=== PATIENT | male | born 1985 | race Caucasian/White ===

== ENCOUNTER 2017-12-08 18:00 | Inpatient (IN) | payer OTHER ==
[2017-12-08 18:42] VITALS: BMI 34.7
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
[2017-12-08] MEDS ORDERED: ACETAMINOPHEN 325 MG TABLET (FP) PO PRN (21:28)
[2017-12-08] MEDS ORDERED: NICOTINE POLACRILEX 2 MG GUM BUC PRN (21:28)
[2017-12-08] MEDS ORDERED: MAGNESIUM HYDROX 2400MG/30ML ORAL SUSPENSION 30 ML CUP PO PRN (21:28)
[2017-12-08] MEDS ORDERED: IBUPROFEN 400 MG TABLET (FP) PO PRN (21:28)
[2017-12-08] MEDS ORDERED: guaiFENesin/D-METHORPHAN HB 10 ML UNIT-DOSE CUPS PO PRN (21:28)
[2017-12-08] MEDS ORDERED: P-EPHED 60MG/TRIPROLIDI 2.5MG TABLET PO PRN (21:28)
[2017-12-08] MEDS ORDERED: LOPERAMIDE HCL 2 MG CAPSULE PO PRN (21:28)
[2017-12-08] MEDS ORDERED: MAG HYDROX/AL HYDROX/SIMETH 30 ML UNIT-DOSE CUP PO PRN (21:28)
[2017-12-08] MEDS ORDERED: MAGNESIUM CITRATE 300 ML BOTTLE PO PRN (21:28)
[2017-12-08] MEDS ORDERED: MENTHOL/PHENOL 1 EACH UD MM PRN (21:28)
[2017-12-08] MEDS: GABAPENTIN 300 MG CAPSULE (FP) PO SCH (23:40)
[2017-12-08] MEDS: THIAMINE HCL 100 MG TABLET (FP) PO SCH (23:40)
[2017-12-08] MEDS ORDERED: TUBERCULIN PPD 5 TU/0.1ML VIAL ID ONE (23:56)
[2017-12-08] MEDS: QUEtiapine FUMARATE 400 MG TABLET PO SCH (23:58)
[2017-12-09] MEDS ORDERED: TUBERCULIN PPD 5 TU/0.1ML VIAL ID ONE (00:05)
[2017-12-09 03:55] LABS: URINE APPEARANCE CLEAR; URINE BILIRUBIN NEGATIVE (NEGATIVE); URINE BLOOD NEGATIVE (NEGATIVE); URINE COLOR STRAW; URINE GLUCOSE (UA) NEGATIVE (NEGATIVE); URINE KETONE NEGATIVE (NEGATIVE); URINE LEUK ESTERASE NEGATIVE (NEGATIVE); URINE NITRITE NEGATIVE (NEGATIVE); URINE PROTEIN NEGATIVE (NEGATIVE); URINE UROBILINOGEN NEGATIVE mg/dL (0.2-1.0)
[2017-12-09] MEDS: NICOTINE 14 MG/24 HOURS TOPICAL PATCH TD SCH (09:48)
[2017-12-09] MEDS: GABAPENTIN 300 MG CAPSULE (FP) PO SCH ×2 (09:48→21:12)
[2017-12-09] MEDS: HYDROCHLOROTHIAZIDE 25 MG TABLET (FP) PO SCH (09:48)
[2017-12-09] MEDS: PRENATAL VITAMINS W/ FOLIC ACID TABLET (FP) PO SCH (09:48)
[2017-12-09] MEDS: hydrOXYzine PAMOATE 50 MG CAPSULE (FP) PO PRN (09:49)
[2017-12-09 10:21] LABS: HEMATOCRIT 43.1 % (35.4-49); HEMOGLOBIN 13.7 GM/dL (11.7-16.9); MCH 27.3 pg (25.7-33.7); MCHC 31.8 g/dl (32.0-35.9); MEAN CELL VOLUME 85.8 fl (80-96); MEAN PLT VOLUME 9.3 fl (7.5-11.1); PLATELET COUNT 223 K/MM3 (134-434); RBC 5.02 M/mm3 (4.00-5.60); RDW 15.1 % (11.9-15.9); WHITE BLOOD COUNT 8.8 K/mm3 (4.0-10.0)
--- NOTE | 2017-12-09 10:29 | EKG ---
Test Reason : Blood Pressure : / mmHG Vent. Rate : 076 BPM Atrial Rate : 076 BPM P-R Int : 142 ms QRS Dur : 082 ms QT Int : 398 ms P-R-T Axes : 043 006 022 degrees QTc Int : 447 ms NORMAL SINUS RHYTHM MODERATE VOLTAGE CRITERIA FOR LVH, MAY BE NORMAL VARIANT BORDERLINE ECG NO PREVIOUS ECGS AVAILABLE Confirmed by ZANE HERNANDEZ, BRADY ([id number]) on 12/09/2017 10:29:34 AM Referred By: Confirmed By:BRADY DEGROOT MD
[2017-12-09 10:32] LABS: CHLORIDE 100 mmol/L (98-107); POTASSIUM 3.7 mmol/L (3.5-5.1); SODIUM 136 mmol/L (136-145)
[2017-12-09 10:45] LABS: ALBUMIN 3.8 g/dl (3.4-5.0); ALK PHOS 81 U/L (45-117); ANION GAP 7 (8-16); BILIRUBIN,TOTAL 0.6 mg/dL (0.2-1.0); BLOOD UREA NITROGEN 11 mg/dL (7-18); CALCIUM 8.8 mg/dL (8.5-10.1); CO2 29 mmol/L (21-32); CREATININE 1.2 mg/dL (0.7-1.3); GLUCOSE,RANDOM 90 mg/dL (74-106); SGOT/AST 11 U/L (15-37); SGPT/ALT 29 U/L (12-78); TOT PROT 8.2 g/dl (6.4-8.2)
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
[2017-12-09] MEDS: LITHIUM CARBONATE 300 MG CAPSULE (FP) PO SCH ×2 (11:52→21:12)
[2017-12-09] MEDS: OLANZapine 10 MG TABLET PO SCH (21:12)
[2017-12-09] MEDS: QUEtiapine FUMARATE 400 MG TABLET PO SCH (21:12)
[2017-12-09] MEDS: THIAMINE HCL 100 MG TABLET (FP) PO SCH (21:12)
[2017-12-10] MEDS: HYDROCHLOROTHIAZIDE 25 MG TABLET (FP) PO SCH (09:52)
[2017-12-10] MEDS: PRENATAL VITAMINS W/ FOLIC ACID TABLET (FP) PO SCH (09:52)
[2017-12-10] MEDS: GABAPENTIN 300 MG CAPSULE (FP) PO SCH ×2 (09:52→21:11)
[2017-12-10] MEDS: LITHIUM CARBONATE 300 MG CAPSULE (FP) PO SCH ×2 (09:52→21:11)
[2017-12-10] MEDS: NICOTINE 14 MG/24 HOURS TOPICAL PATCH TD SCH (09:52)
[2017-12-10] MEDS: DULoxetine HCL 20 MG CAPSULE.DR (FP) PO SCH (09:52)
[2017-12-10] MEDS: QUEtiapine FUMARATE 400 MG TABLET PO SCH (21:11)
[2017-12-10] MEDS: THIAMINE HCL 100 MG TABLET (FP) PO SCH (21:11)
[2017-12-10] MEDS: OLANZapine 10 MG TABLET PO SCH (21:11)
[2017-12-11] MEDS: GABAPENTIN 300 MG CAPSULE (FP) PO SCH ×2 (09:47→21:09)
[2017-12-11] MEDS: LITHIUM CARBONATE 300 MG CAPSULE (FP) PO SCH ×2 (09:47→21:09)
[2017-12-11] MEDS: HYDROCHLOROTHIAZIDE 25 MG TABLET (FP) PO SCH (09:47)
[2017-12-11] MEDS: PRENATAL VITAMINS W/ FOLIC ACID TABLET (FP) PO SCH (09:47)
[2017-12-11] MEDS: DULoxetine HCL 20 MG CAPSULE.DR (FP) PO SCH (09:47)
[2017-12-11] MEDS: NICOTINE 14 MG/24 HOURS TOPICAL PATCH TD SCH (09:47)
[2017-12-11] MEDS: hydrOXYzine PAMOATE 50 MG CAPSULE (FP) PO PRN (14:16)
[2017-12-11] MEDS: OLANZapine 10 MG TABLET PO SCH (21:09)
[2017-12-11] MEDS: THIAMINE HCL 100 MG TABLET (FP) PO SCH (21:09)
[2017-12-11] MEDS: QUEtiapine FUMARATE 400 MG TABLET PO SCH (21:09)
[2017-12-12] MEDS: GABAPENTIN 300 MG CAPSULE (FP) PO SCH ×2 (09:45→21:07)
[2017-12-12] MEDS: PRENATAL VITAMINS W/ FOLIC ACID TABLET (FP) PO SCH (09:45)
[2017-12-12] MEDS: DULoxetine HCL 20 MG CAPSULE.DR (FP) PO SCH (09:45)
[2017-12-12] MEDS: LITHIUM CARBONATE 300 MG CAPSULE (FP) PO SCH ×2 (09:45→21:07)
[2017-12-12] MEDS: NICOTINE 14 MG/24 HOURS TOPICAL PATCH TD SCH (09:45)
[2017-12-12] MEDS: HYDROCHLOROTHIAZIDE 25 MG TABLET (FP) PO SCH (09:45)
[2017-12-12] MEDS: hydrOXYzine PAMOATE 50 MG CAPSULE (FP) PO PRN (14:07)
[2017-12-12] MEDS: THIAMINE HCL 100 MG TABLET (FP) PO SCH (21:07)
[2017-12-12] MEDS: OLANZapine 10 MG TABLET PO SCH (21:07)
[2017-12-12] MEDS: QUEtiapine FUMARATE 400 MG TABLET PO SCH (21:07)
[2017-12-13] MEDS: PRENATAL VITAMINS W/ FOLIC ACID TABLET (FP) PO SCH (10:02)
[2017-12-13] MEDS: GABAPENTIN 300 MG CAPSULE (FP) PO SCH ×2 (10:02→21:07)
[2017-12-13] MEDS: DULoxetine HCL 20 MG CAPSULE.DR (FP) PO SCH (10:03)
[2017-12-13] MEDS: NICOTINE 14 MG/24 HOURS TOPICAL PATCH TD SCH (10:05)
[2017-12-13] MEDS: HYDROCHLOROTHIAZIDE 25 MG TABLET (FP) PO SCH (10:05)
[2017-12-13] MEDS: LITHIUM CARBONATE 300 MG CAPSULE (FP) PO SCH ×2 (10:05→21:07)
[2017-12-13] MEDS: hydrOXYzine PAMOATE 50 MG CAPSULE (FP) PO PRN (14:19)
[2017-12-13] MEDS: QUEtiapine FUMARATE 400 MG TABLET PO SCH (21:07)
[2017-12-13] MEDS: THIAMINE HCL 100 MG TABLET (FP) PO SCH (21:07)
[2017-12-13] MEDS: OLANZapine 10 MG TABLET PO SCH (21:07)
[2017-12-14] MEDS: NICOTINE 14 MG/24 HOURS TOPICAL PATCH TD SCH (09:58)
[2017-12-14] MEDS: GABAPENTIN 300 MG CAPSULE (FP) PO SCH ×2 (09:58→21:05)
[2017-12-14] MEDS: HYDROCHLOROTHIAZIDE 25 MG TABLET (FP) PO SCH (09:58)
[2017-12-14] MEDS: LITHIUM CARBONATE 300 MG CAPSULE (FP) PO SCH ×2 (09:58→21:05)
[2017-12-14] MEDS: DULoxetine HCL 20 MG CAPSULE.DR (FP) PO SCH (09:58)
[2017-12-14] MEDS: PRENATAL VITAMINS W/ FOLIC ACID TABLET (FP) PO SCH (09:58)
[2017-12-14] MEDS: THIAMINE HCL 100 MG TABLET (FP) PO SCH (21:04)
[2017-12-14] MEDS: OLANZapine 10 MG TABLET PO SCH (21:05)
[2017-12-14] MEDS: hydrOXYzine PAMOATE 50 MG CAPSULE (FP) PO PRN (21:05)
[2017-12-14] MEDS: QUEtiapine FUMARATE 400 MG TABLET PO SCH (21:05)
[2017-12-15] MEDS: hydrOXYzine PAMOATE 50 MG CAPSULE (FP) PO PRN ×2 (00:55→15:35)
[2017-12-15] MEDS: HYDROCHLOROTHIAZIDE 25 MG TABLET (FP) PO SCH (09:54)
[2017-12-15] MEDS: GABAPENTIN 300 MG CAPSULE (FP) PO SCH ×2 (09:54→21:08)
[2017-12-15] MEDS: NICOTINE 14 MG/24 HOURS TOPICAL PATCH TD SCH (09:54)
[2017-12-15] MEDS: LITHIUM CARBONATE 300 MG CAPSULE (FP) PO SCH ×2 (09:54→21:06)
[2017-12-15] MEDS: DULoxetine HCL 20 MG CAPSULE.DR (FP) PO SCH ×2 (09:54→17:20)
[2017-12-15] MEDS: PRENATAL VITAMINS W/ FOLIC ACID TABLET (FP) PO SCH (09:54)
[2017-12-15] MEDS ORDERED: BENZOCAINE 20 % GEL 9 GM TUBE MM PRN (14:54)
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
[2017-12-15] MEDS: QUEtiapine FUMARATE 400 MG TABLET PO SCH (21:06)
[2017-12-15] MEDS: OLANZapine 10 MG TABLET PO SCH (21:06)
[2017-12-15] MEDS: THIAMINE HCL 100 MG TABLET (FP) PO SCH (21:06)
[2017-12-15] MEDS: NAPROXEN 500 MG TABLET (FP) PO SCH (21:08)
[2017-12-16] MEDS: GABAPENTIN 300 MG CAPSULE (FP) PO SCH ×3 (06:36→21:06)
[2017-12-16] MEDS: NAPROXEN 500 MG TABLET (FP) PO SCH ×2 (09:56→21:06)
[2017-12-16] MEDS: LITHIUM CARBONATE 300 MG CAPSULE (FP) PO SCH ×2 (09:56→21:06)
[2017-12-16] MEDS: DULoxetine HCL 20 MG CAPSULE.DR (FP) PO SCH (09:56)
[2017-12-16] MEDS: PRENATAL VITAMINS W/ FOLIC ACID TABLET (FP) PO SCH (09:56)
[2017-12-16] MEDS: HYDROCHLOROTHIAZIDE 25 MG TABLET (FP) PO SCH (09:57)
[2017-12-16] MEDS: PANTOPRAZOLE 40 MG TABLET (FP) PO SCH (09:57)
[2017-12-16] MEDS: NICOTINE 14 MG/24 HOURS TOPICAL PATCH TD SCH (09:57)
[2017-12-16] MEDS: hydrOXYzine PAMOATE 50 MG CAPSULE (FP) PO PRN (12:39)
[2017-12-16] MEDS: QUEtiapine FUMARATE 400 MG TABLET PO SCH (21:06)
[2017-12-16] MEDS: OLANZapine 10 MG TABLET PO SCH (21:06)
[2017-12-16] MEDS: THIAMINE HCL 100 MG TABLET (FP) PO SCH (21:06)
[2017-12-17] MEDS: GABAPENTIN 300 MG CAPSULE (FP) PO SCH ×3 (06:30→21:06)
[2017-12-17] MEDS: DULoxetine HCL 20 MG CAPSULE.DR (FP) PO SCH (09:53)
[2017-12-17] MEDS: PRENATAL VITAMINS W/ FOLIC ACID TABLET (FP) PO SCH (09:53)
[2017-12-17] MEDS: HYDROCHLOROTHIAZIDE 25 MG TABLET (FP) PO SCH (09:54)
[2017-12-17] MEDS: LITHIUM CARBONATE 300 MG CAPSULE (FP) PO SCH ×2 (09:54→21:06)
[2017-12-17] MEDS: PANTOPRAZOLE 40 MG TABLET (FP) PO SCH (09:55)
[2017-12-17] MEDS: NAPROXEN 500 MG TABLET (FP) PO SCH ×2 (09:55→21:06)
[2017-12-17] MEDS: NICOTINE 14 MG/24 HOURS TOPICAL PATCH TD SCH (09:55)
[2017-12-17] MEDS: OLANZapine 10 MG TABLET PO SCH (21:06)
[2017-12-17] MEDS: QUEtiapine FUMARATE 400 MG TABLET PO SCH (21:06)
[2017-12-17] MEDS: THIAMINE HCL 100 MG TABLET (FP) PO SCH (21:06)
[2017-12-18] MEDS: GABAPENTIN 300 MG CAPSULE (FP) PO SCH ×3 (06:37→21:07)
[2017-12-18] MEDS: LITHIUM CARBONATE 300 MG CAPSULE (FP) PO SCH ×2 (09:50→21:07)
[2017-12-18] MEDS: PRENATAL VITAMINS W/ FOLIC ACID TABLET (FP) PO SCH (09:50)
[2017-12-18] MEDS: HYDROCHLOROTHIAZIDE 25 MG TABLET (FP) PO SCH (09:50)
[2017-12-18] MEDS: NICOTINE 14 MG/24 HOURS TOPICAL PATCH TD SCH (09:50)
[2017-12-18] MEDS: NAPROXEN 500 MG TABLET (FP) PO SCH ×2 (09:50→21:08)
[2017-12-18] MEDS: DULoxetine HCL 20 MG CAPSULE.DR (FP) PO SCH (09:50)
[2017-12-18] MEDS: PANTOPRAZOLE 40 MG TABLET (FP) PO SCH (09:50)
[2017-12-18] MEDS: OLANZapine 10 MG TABLET PO SCH (21:08)
[2017-12-18] MEDS: THIAMINE HCL 100 MG TABLET (FP) PO SCH (21:08)
[2017-12-18] MEDS: QUEtiapine FUMARATE 400 MG TABLET PO SCH (21:08)
[2017-12-19] MEDS: GABAPENTIN 300 MG CAPSULE (FP) PO SCH ×3 (06:39→21:04)
[2017-12-19] MEDS: PANTOPRAZOLE 40 MG TABLET (FP) PO SCH (09:33)
[2017-12-19] MEDS: LITHIUM CARBONATE 300 MG CAPSULE (FP) PO SCH ×2 (09:33→21:05)
[2017-12-19] MEDS: NAPROXEN 500 MG TABLET (FP) PO SCH ×2 (09:33→21:05)
[2017-12-19] MEDS: DULoxetine HCL 20 MG CAPSULE.DR (FP) PO SCH (09:33)
[2017-12-19] MEDS: PRENATAL VITAMINS W/ FOLIC ACID TABLET (FP) PO SCH (09:33)
[2017-12-19] MEDS: HYDROCHLOROTHIAZIDE 25 MG TABLET (FP) PO SCH (09:33)
[2017-12-19] MEDS: NICOTINE 14 MG/24 HOURS TOPICAL PATCH TD SCH (09:34)
[2017-12-19] MEDS: hydrOXYzine PAMOATE 50 MG CAPSULE (FP) PO PRN (09:35)
[2017-12-19] MEDS: OLANZapine 10 MG TABLET PO SCH (21:04)
[2017-12-19] MEDS: THIAMINE HCL 100 MG TABLET (FP) PO SCH (21:05)
[2017-12-19] MEDS: QUEtiapine FUMARATE 400 MG TABLET PO SCH (21:05)
[2017-12-20] MEDS: GABAPENTIN 300 MG CAPSULE (FP) PO SCH ×3 (06:56→21:08)
[2017-12-20] MEDS: NAPROXEN 500 MG TABLET (FP) PO SCH ×2 (09:38→21:08)
[2017-12-20] MEDS: HYDROCHLOROTHIAZIDE 25 MG TABLET (FP) PO SCH (09:38)
[2017-12-20] MEDS: PRENATAL VITAMINS W/ FOLIC ACID TABLET (FP) PO SCH (09:38)
[2017-12-20] MEDS: DULoxetine HCL 20 MG CAPSULE.DR (FP) PO SCH (09:38)
[2017-12-20] MEDS: PANTOPRAZOLE 40 MG TABLET (FP) PO SCH (09:38)
[2017-12-20] MEDS: LITHIUM CARBONATE 300 MG CAPSULE (FP) PO SCH ×2 (09:39→21:08)
[2017-12-20] MEDS: hydrOXYzine PAMOATE 50 MG CAPSULE (FP) PO PRN (09:39)
[2017-12-20] MEDS: NICOTINE 14 MG/24 HOURS TOPICAL PATCH TD SCH (09:40)
[2017-12-20] MEDS: THIAMINE HCL 100 MG TABLET (FP) PO SCH (21:08)
[2017-12-20] MEDS: QUEtiapine FUMARATE 400 MG TABLET PO SCH (21:08)
[2017-12-20] MEDS: OLANZapine 10 MG TABLET PO SCH (21:08)
[2017-12-21] MEDS: GABAPENTIN 300 MG CAPSULE (FP) PO SCH ×3 (06:22→21:03)
[2017-12-21] MEDS: PANTOPRAZOLE 40 MG TABLET (FP) PO SCH (10:30)
[2017-12-21] MEDS: LITHIUM CARBONATE 300 MG CAPSULE (FP) PO SCH ×2 (10:30→21:03)
[2017-12-21] MEDS: DULoxetine HCL 20 MG CAPSULE.DR (FP) PO SCH (10:30)
[2017-12-21] MEDS: PRENATAL VITAMINS W/ FOLIC ACID TABLET (FP) PO SCH (10:30)
[2017-12-21] MEDS: HYDROCHLOROTHIAZIDE 25 MG TABLET (FP) PO SCH (10:30)
[2017-12-21] MEDS: NICOTINE 14 MG/24 HOURS TOPICAL PATCH TD SCH (10:30)
[2017-12-21] MEDS: NAPROXEN 500 MG TABLET (FP) PO SCH ×2 (10:30→21:03)
[2017-12-21] MEDS: THIAMINE HCL 100 MG TABLET (FP) PO SCH (21:03)
[2017-12-21] MEDS: QUEtiapine FUMARATE 400 MG TABLET PO SCH (21:03)
[2017-12-21] MEDS: OLANZapine 10 MG TABLET PO SCH (21:03)
[2017-12-22] MEDS: GABAPENTIN 300 MG CAPSULE (FP) PO SCH ×3 (06:29→21:10)
[2017-12-22] MEDS: NAPROXEN 500 MG TABLET (FP) PO SCH ×2 (09:43→21:10)
[2017-12-22] MEDS: LITHIUM CARBONATE 300 MG CAPSULE (FP) PO SCH ×2 (09:43→21:10)
[2017-12-22] MEDS: DULoxetine HCL 20 MG CAPSULE.DR (FP) PO SCH (09:43)
[2017-12-22] MEDS: NICOTINE 14 MG/24 HOURS TOPICAL PATCH TD SCH (09:43)
[2017-12-22] MEDS: PANTOPRAZOLE 40 MG TABLET (FP) PO SCH (09:43)
[2017-12-22] MEDS: PRENATAL VITAMINS W/ FOLIC ACID TABLET (FP) PO SCH (09:43)
[2017-12-22] MEDS: HYDROCHLOROTHIAZIDE 25 MG TABLET (FP) PO SCH (09:43)
[2017-12-22] MEDS: THIAMINE HCL 100 MG TABLET (FP) PO SCH (21:10)
[2017-12-22] MEDS: SUVOREXANT 10 MG TABLET PO PRN (21:10)
[2017-12-22] MEDS: QUEtiapine FUMARATE 400 MG TABLET PO SCH (21:10)
[2017-12-22] MEDS: OLANZapine 10 MG TABLET PO SCH (21:10)
[2017-12-22] MEDS: hydrOXYzine PAMOATE 50 MG CAPSULE (FP) PO PRN (23:39)
[2017-12-23] MEDS: GABAPENTIN 300 MG CAPSULE (FP) PO SCH ×3 (06:47→21:05)
[2017-12-23] MEDS: DULoxetine HCL 20 MG CAPSULE.DR (FP) PO SCH (09:35)
[2017-12-23] MEDS: LITHIUM CARBONATE 300 MG CAPSULE (FP) PO SCH ×2 (09:35→21:05)
[2017-12-23] MEDS: NAPROXEN 500 MG TABLET (FP) PO SCH ×2 (09:35→21:05)
[2017-12-23] MEDS: HYDROCHLOROTHIAZIDE 25 MG TABLET (FP) PO SCH (09:35)
[2017-12-23] MEDS: NICOTINE 14 MG/24 HOURS TOPICAL PATCH TD SCH (09:35)
[2017-12-23] MEDS: PRENATAL VITAMINS W/ FOLIC ACID TABLET (FP) PO SCH (09:35)
[2017-12-23] MEDS: PANTOPRAZOLE 40 MG TABLET (FP) PO SCH (09:35)
[2017-12-23] MEDS: THIAMINE HCL 100 MG TABLET (FP) PO SCH (21:05)
[2017-12-23] MEDS: OLANZapine 10 MG TABLET PO SCH (21:05)
[2017-12-23] MEDS: SUVOREXANT 10 MG TABLET PO PRN (21:05)
[2017-12-23] MEDS: QUEtiapine FUMARATE 400 MG TABLET PO SCH (21:06)
[2017-12-24] MEDS: GABAPENTIN 300 MG CAPSULE (FP) PO SCH ×3 (06:29→21:12)
[2017-12-24] MEDS: NAPROXEN 500 MG TABLET (FP) PO SCH ×2 (10:09→21:12)
[2017-12-24] MEDS: HYDROCHLOROTHIAZIDE 25 MG TABLET (FP) PO SCH (10:09)
[2017-12-24] MEDS: PRENATAL VITAMINS W/ FOLIC ACID TABLET (FP) PO SCH (10:10)
[2017-12-24] MEDS: DULoxetine HCL 20 MG CAPSULE.DR (FP) PO SCH (10:10)
[2017-12-24] MEDS: PANTOPRAZOLE 40 MG TABLET (FP) PO SCH (10:10)
[2017-12-24] MEDS: LITHIUM CARBONATE 300 MG CAPSULE (FP) PO SCH ×2 (10:10→21:11)
[2017-12-24] MEDS: NICOTINE 14 MG/24 HOURS TOPICAL PATCH TD SCH (10:10)
[2017-12-24] MEDS: OLANZapine 10 MG TABLET PO SCH (21:12)
[2017-12-24] MEDS: THIAMINE HCL 100 MG TABLET (FP) PO SCH (21:12)
[2017-12-24] MEDS: QUEtiapine FUMARATE 400 MG TABLET PO SCH (21:12)
[2017-12-24] MEDS: SUVOREXANT 10 MG TABLET PO PRN (21:13)
[2017-12-25] MEDS: GABAPENTIN 300 MG CAPSULE (FP) PO SCH ×3 (07:11→21:08)
[2017-12-25] MEDS: NAPROXEN 500 MG TABLET (FP) PO SCH ×2 (09:34→21:08)
[2017-12-25] MEDS: PANTOPRAZOLE 40 MG TABLET (FP) PO SCH (09:34)
[2017-12-25] MEDS: HYDROCHLOROTHIAZIDE 25 MG TABLET (FP) PO SCH (09:34)
[2017-12-25] MEDS: LITHIUM CARBONATE 300 MG CAPSULE (FP) PO SCH ×2 (09:34→21:08)
[2017-12-25] MEDS: NICOTINE 14 MG/24 HOURS TOPICAL PATCH TD SCH (09:34)
[2017-12-25] MEDS: DULoxetine HCL 20 MG CAPSULE.DR (FP) PO SCH (09:34)
[2017-12-25] MEDS: PRENATAL VITAMINS W/ FOLIC ACID TABLET (FP) PO SCH (09:35)
[2017-12-25] MEDS: OLANZapine 10 MG TABLET PO SCH (21:08)
[2017-12-25] MEDS: QUEtiapine FUMARATE 400 MG TABLET PO SCH (21:08)
[2017-12-25] MEDS: THIAMINE HCL 100 MG TABLET (FP) PO SCH (21:08)
[2017-12-25] MEDS: SUVOREXANT 10 MG TABLET PO PRN (21:10)
[2017-12-26] MEDS: GABAPENTIN 300 MG CAPSULE (FP) PO SCH ×3 (06:58→21:10)
[2017-12-26] MEDS: PANTOPRAZOLE 40 MG TABLET (FP) PO SCH (09:45)
[2017-12-26] MEDS: LITHIUM CARBONATE 300 MG CAPSULE (FP) PO SCH ×2 (09:45→21:11)
[2017-12-26] MEDS: NAPROXEN 500 MG TABLET (FP) PO SCH ×2 (09:45→21:10)
[2017-12-26] MEDS: NICOTINE 14 MG/24 HOURS TOPICAL PATCH TD SCH (09:45)
[2017-12-26] MEDS: PRENATAL VITAMINS W/ FOLIC ACID TABLET (FP) PO SCH (09:45)
[2017-12-26] MEDS: HYDROCHLOROTHIAZIDE 25 MG TABLET (FP) PO SCH (09:45)
[2017-12-26] MEDS: DULoxetine HCL 20 MG CAPSULE.DR (FP) PO SCH (09:45)
[2017-12-26] MEDS: QUEtiapine FUMARATE 400 MG TABLET PO SCH (21:11)
[2017-12-26] MEDS: OLANZapine 10 MG TABLET PO SCH (21:11)
[2017-12-26] MEDS: SUVOREXANT 10 MG TABLET PO PRN (21:12)
[2017-12-26] MEDS: THIAMINE HCL 100 MG TABLET (FP) PO SCH (21:58)
[2017-12-27] MEDS: GABAPENTIN 300 MG CAPSULE (FP) PO SCH ×3 (06:18→21:08)
[2017-12-27] MEDS: NICOTINE 14 MG/24 HOURS TOPICAL PATCH TD SCH (10:00)
[2017-12-27] MEDS: PRENATAL VITAMINS W/ FOLIC ACID TABLET (FP) PO SCH (10:00)
[2017-12-27] MEDS: DULoxetine HCL 20 MG CAPSULE.DR (FP) PO SCH (10:00)
[2017-12-27] MEDS: HYDROCHLOROTHIAZIDE 25 MG TABLET (FP) PO SCH (10:02)
[2017-12-27] MEDS: LITHIUM CARBONATE 300 MG CAPSULE (FP) PO SCH ×2 (10:02→21:08)
[2017-12-27] MEDS: NAPROXEN 500 MG TABLET (FP) PO SCH ×2 (10:02→21:07)
[2017-12-27] MEDS: PANTOPRAZOLE 40 MG TABLET (FP) PO SCH (10:15)
[2017-12-27] MEDS: THIAMINE HCL 100 MG TABLET (FP) PO SCH (21:07)
[2017-12-27] MEDS: SUVOREXANT 10 MG TABLET PO PRN (21:08)
[2017-12-27] MEDS: OLANZapine 10 MG TABLET PO SCH (21:08)
[2017-12-27] MEDS: QUEtiapine FUMARATE 400 MG TABLET PO SCH (22:02)
[2017-12-28] MEDS: GABAPENTIN 300 MG CAPSULE (FP) PO SCH ×3 (06:59→21:23)
[2017-12-28] MEDS: HYDROCHLOROTHIAZIDE 25 MG TABLET (FP) PO SCH (10:00)
[2017-12-28] MEDS: NAPROXEN 500 MG TABLET (FP) PO SCH ×2 (10:00→21:23)
[2017-12-28] MEDS: DULoxetine HCL 20 MG CAPSULE.DR (FP) PO SCH (10:00)
[2017-12-28] MEDS: PANTOPRAZOLE 40 MG TABLET (FP) PO SCH (10:00)
[2017-12-28] MEDS: LITHIUM CARBONATE 300 MG CAPSULE (FP) PO SCH ×2 (10:00→21:23)
[2017-12-28] MEDS: PRENATAL VITAMINS W/ FOLIC ACID TABLET (FP) PO SCH (10:01)
[2017-12-28] MEDS: NICOTINE 14 MG/24 HOURS TOPICAL PATCH TD SCH (10:01)
--- NOTE | 2017-12-28 15:44 | PN ---
S Progress Note Note: patient reports a good response to Belsomra, no side-effects reported, will r/n medication.
[2017-12-28] MEDS: OLANZapine 10 MG TABLET PO SCH (21:23)
[2017-12-28] MEDS: QUEtiapine FUMARATE 400 MG TABLET PO SCH (21:23)
[2017-12-28] MEDS: THIAMINE HCL 100 MG TABLET (FP) PO SCH (21:23)
[2017-12-28] MEDS: SUVOREXANT 10 MG TABLET PO PRN (21:24)
[2017-12-29] MEDS: GABAPENTIN 300 MG CAPSULE (FP) PO SCH (06:34)
[2017-12-29 06:37] VITALS: BP 138/77; PULSE 84; TEMP 97.8
[2017-12-29] MEDS: PANTOPRAZOLE 40 MG TABLET (FP) PO SCH (09:38)
[2017-12-29] MEDS: LITHIUM CARBONATE 300 MG CAPSULE (FP) PO SCH (09:38)
[2017-12-29] MEDS: PRENATAL VITAMINS W/ FOLIC ACID TABLET (FP) PO SCH (09:38)
[2017-12-29] MEDS: DULoxetine HCL 20 MG CAPSULE.DR (FP) PO SCH (09:38)
[2017-12-29] MEDS: NICOTINE 14 MG/24 HOURS TOPICAL PATCH TD SCH (09:38)
[2017-12-29] MEDS: HYDROCHLOROTHIAZIDE 25 MG TABLET (FP) PO SCH (09:38)
[2017-12-29] MEDS: NAPROXEN 500 MG TABLET (FP) PO SCH (09:38)
--- NOTE | 2017-12-29 10:11 | PN ---
Psychiatric Progress Note Vital Signs: Vital Signs Period Temp Pulse Resp BP Sys/Coombs Pulse Ox Last 24 Hr 97.8 F 84 16-20 138/77 Date of Session: 12/29/17 Chief Complaint:: discharge visit HPI: Patient has addressed cannabis, MDMA dependence comorbid Bipolar I disorder , most recent depressed episode. Current Medications: Active Medications Generic Name Dose Route Start Last Admin Trade Name Freq PRN Reason Stop Dose Admin Acetaminophen 650 mg 12/08/17 21:28 Tylenol - PO Q4H PRN FEVER Al Hydroxide/Mg Hydroxide 30 ml 12/08/17 21:28 Mylanta Oral Suspension - PO Q6H PRN DYSPEPSIA Benzocaine 1 applic 12/15/17 14:54 12/27/17 13:50 Anbesol - MM 1 applic Q2H PRN Administration FOR TOOTHACHE Duloxetine HCl 40 mg 12/15/17 16:45 12/29/17 09:38 Cymbalta - PO 40 mg DAILY LEELA Administration Eucalyptus/Menthol/Phenol/Sorbitol 1 each 12/08/17 21:28 Cepastat Lozenge - MM Q4H PRN SORE THROAT Gabapentin 600 mg 12/15/17 22:00 12/29/17 06:34 Neurontin - PO Not Given TID LEELA Guaifenesin 10 ml 12/08/17 21:28 Robitussin Dm - PO Q6H PRN COUGH Hydrochlorothiazide 25 mg 12/09/17 10:00 12/29/17 09:38 Hctz - PO 25 mg DAILY LEELA Administration Hydroxyzine Pamoate 50 mg 12/08/17 21:28 12/22/17 23:39 Vistaril - PO 50 mg Q4H PRN Administration AGITATION [place] Carbonate 300 mg 12/09/17 11:00 12/29/17 09:38 Eskalith - PO 300 mg BID LEELA Administration Loperamide HCl 4 mg 12/08/17 21:28 Imodium - PO Q6H PRN DIARRHEA Magnesium Citrate 300 ml 12/08/17 21:28 Citroma - PO Q48H PRN CONSTIPATION Magnesium Hydroxide 30 ml 12/08/17 21:28 Milk Of Magnesia - PO DAILY PRN CONSTIPATION Naproxen 500 mg 12/15/17 22:00 12/29/17 09:38 Naprosyn - PO 500 mg BID LEELA Administration Nicotine 14 mg 12/09/17 10:00 12/29/17 09:38 Nicoderm Patch - TD Not Given DAILY LEELA Nicotine Polacrilex 2 mg 12/08/17 21:28 Nicorette Gum - BUC Q2H PRN NICOTINE REPLACEMENT RX Olanzapine 10 mg 12/09/17 22:00 12/28/17 21:23 Zyprexa - PO 10 mg HS LEELA Administration Pantoprazole Sodium 40 mg 12/16/17 10:00 12/29/17 09:38 Protonix - PO 40 mg DAILY LEELA Administration Multivit/Folic Acid/Iron 1 tab 12/09/17 10:00 12/29/17 09:38 Vitamins (Sjr) - PO 1 tab DAILY LEELA Administration Pseudoephedrine/Triprolidine 1 combo 12/08/17 21:28 Actifed - PO TID PRN NASAL CONGESTION Quetiapine Fumarate 400 mg 12/08/17 23:45 12/28/17 21:23 Seroquel - PO 400 mg HS LEELA Administration Thiamine HCl 100 mg 12/08/17 22:00 12/28/17 21:23 Vitamin B1 - PO 100 mg HS LEELA Administration Current Side Effect: No Lab tests ordered: Yes (lithium blood level 0.8(WNL)) Lab tests reviewed: Yes Provider note:: Patient has completed today his treatment and met his identified goals, will continue to address his issues at [facility] outpatient treatment program. Patient gained insights into his addition and and motivated to continue maintain abstinence. He understands the negative impact of drug use on his physical and mental health and motivated be adherent to every aspects of his aftercare plans. Patient continue to finding Lithim, Olanzepine, Seroquel and Cymbalta helpfull in terms of mood stabilizations, anxiety reduction and sleep improvement, scripts provided for 30 days, he is stable for discharge today. Total face to face time:: 25 Mental Status Exam - Mental Status Exam Alert and Oriented to: Time, Place, Person Cognitive Function: Good Patient Appearance: Well Groomed Mood: Hopeful Affect: Appropriate, Mood Congruent Patient Behavior: Appropriate, Cooperative Speech Pattern: Clear, Appropriate Voice Loudness: Normal Thought Process: Intact, Goal Oriented Thought Disorder: Not Present Hallucinations: Denies Suicidal Ideation: Denies Homicidal Ideation: Denies Insight/Judgement: Good Sleep: Well Appetite: Good Muscle strength/Tone: Normal Gait/Station: Normal Psychiatric Treatment Plan - Problem List (1) Methylenedioxymethamphetamine (MDMA) dependence with current use Current Visit: Yes (2) Bipolar I disorder, most recent episode depressed with anxious distress Current Visit: Yes (3) Amputation of right arm below elbow Current Visit: Yes (4) Hypertension Current Visit: Yes (5) Marijuana dependence Current Visit: Yes (6) Nicotine dependence Current Visit: Yes (7) PTSD (post-traumatic stress disorder) Current Visit: Yes
[2017-12-29] MEDS ORDERED: GABAPENTIN 400 MG CAPSULE (FP) PO SCH (10:50)
== END 2017-12-29 10:40 | disposition home or self-care (01) | DRG 772 ==
LOC: YASAS 18:00 → Y5N 21:28
PROVIDERS: ADMIT Psychiatry & Neurology Psychiatry; ATTEND Psychiatry & Neurology Psychiatry
PROC: HZ42ZZZ Group Counseling for Substance Abuse Treatment, Cognitive-Behavioral (ICD-10-PCS; principal; 2017-12-08)
DX: F15.20 Other stimulant dependence, uncomplicated (principal); F12.20 Cannabis dependence, uncomplicated; F17.210 Nicotine dependence, cigarettes, uncomplicated; F43.10 Post-traumatic stress disorder, unspecified; I10 Essential (primary) hypertension; G40.509 Epileptic seizures related to external causes, not intractable, without status epilepticus; Z91.5 Personal history of self-harm; Z89.211 Acquired absence of right upper limb below elbow
CPT/HCPCS: 36415; 80053; 80178; 81003; 85027; 86593; 93005; 93010